=== PATIENT | female | born 1955 | race African-American/Black ===

== ENCOUNTER 2019-09-20 19:33 | Inpatient (IN) ==
[2019-09-20 20:27] LABS: Albumin 2.7 G/DL (3.4-5.0); Bilirubin,Total 0.7 MG/DL (0.2-1.0); Calcium 8.5 MG/DL (8.5-10.1); Osmolality,Calculated 306.7 MOS/KG (273-304); Total Protein 8.3 G/DL (6.4-8.3)
[2019-09-20 20:34] LABS: Basophils % 0.2 % (0.0-0.8); Eosinophils % 0.1 % (0.00-10.9); Hematocrit 41.7 VOL% (35.7-47.0); Hemoglobin 12.1 GM/DL (12.0-16.0); Immature Granulocytes % 0.3 %; Immature Granulocytes Absolute 0.03 #; Lymphocytes % 23.4 % (21.3-54.2); Mean Corpuscular Volume 91.4 FL (87-102); Mean Platelet Volume 13.3 FL (9.6-12.0); Monocytes % 8.2 % (1.7-12.7); Neutrophils % 67.8 % (38.7-73.9); Platelet Count 167 T/CUMM (130-400); Red Blood Count 4.56 MC/CUMM (3.8-5.5); Red Cell Distribution Width 15.2 % (9.3-17.3); White Blood Count 8.6 T/CUMM (4-12)
[2019-09-20] MEDS ORDERED: ONDANSETRON 4 MG/2 ML VIAL IV PRN (21:27)
[2019-09-20 21:29] LABS: Apearance,Urine Slightly Cloudy (Clear); Urine Color Yellow (Yellow)
[2019-09-20 21:30] LABS: Bilirubin,Urine Negative (Negative); Blood, Urine Trace mg/dL (Negative); Glucose,Urine (UA) 50 mg/dL (Negative); Ketones,Urine Negative (Negative); Nitrite,Urine Negative (Negative); Protein,Urine 100 MG/DL; RBC,Urine 0-2 /HPF (0-4); Squamous Epithelial Cell,Urine Few /HPF (0-10); Urine Urobilinogen 0.2 EU/DL (0.2-1.0)
[2019-09-20 21:31] LABS: Bacteria,Urine Few /HPF (Few)
[2019-09-20] MEDS: ENOXAPARIN 40 MG/0.4 ML SYRINGE SUBCUT SCH (23:44)
[2019-09-21 00:52] LABS: Barbiturates Screen,Urine Negative (Negative); Benzodiazepines Screen,Urine Negative (Negative); Cannabinoid Screen,Urine Negative (Negative); Opiate Screen,Urine Negative (Negative); Phencyclidine Screen,Urine Negative (Negative)
[2019-09-21] MEDS: DEXTROSE 5% 1,000 ML IV SCH ×3 (01:33→23:01)
[2019-09-21] MEDS: VANCOMYCIN INJ 1,000 MG in SODIUM CHLORIDE 0.9% 250 ML IV SCH ×2 (01:34→15:52)
[2019-09-21] MEDS: PIPERACILLIN/TAZOBACTAM 3,375 MG in SODIUM CHLORIDE 0.9% 100 ML IV SCH ×3 (02:54→18:25)
[2019-09-21 05:59] LABS: Basophils % 0.2 % (0.0-0.8); Eosinophils % 0.1 % (0.00-10.9); Immature Granulocytes % 0.4 %; Immature Granulocytes Absolute 0.04 #; Lymphocytes # 2.3 10*3/uL (1.4-4.0); Lymphocytes % 25.4 % (21.3-54.2); Mean Corpuscular HGB Conc 28.4 GM/DL (32-36); Mean Corpuscular Volume 92.8 FL (87-102); Mean Platelet Volume 12.3 FL (9.6-12.0); Monocytes % 7.4 % (1.7-12.7); Neutrophils % 66.5 % (38.7-73.9); Platelet Count 123 T/CUMM (130-400); Red Blood Count 4.44 MC/CUMM (3.8-5.5); Red Cell Distribution Width 14.9 % (9.3-17.3)
[2019-09-21] MEDS ORDERED: GLUCAGON 1 MG VIAL IM PRN (06:14)
[2019-09-21] MEDS ORDERED: DEXTROSE 50% 25 GM/50 ML VIAL IV PRN (06:14)
[2019-09-21 06:19] LABS: Hematocrit 41.1 VOL% (35.7-47.0); Hemoglobin 11.8 GM/DL (12.0-16.0)
[2019-09-21 06:21] LABS: Hypochromasia 1+
[2019-09-21 06:22] LABS: Platelet Estimate Adequate
[2019-09-21 06:32] LABS: Albumin 2.6 G/DL (3.4-5.0); Bilirubin,Total 1.3 MG/DL (0.2-1.0); Calcium 8.6 MG/DL (8.5-10.1); Osmolality,Calculated 319.7 MOS/KG (273-304)
[2019-09-21 07:30] LABS: Risk Ratio 3.97; VLDL CHOLESTEROL 19.8 MG/DL
[2019-09-21] MEDS ORDERED: OLOPATADINE BOTH EYES SCH (09:00)
[2019-09-21] MEDS: PANTOPRAZOLE 40 MG VIAL IV SCH (11:22)
[2019-09-21] MEDS: INSULIN LISPRO 100 UNIT/ML SUBCUT SCH ×2 (12:27→18:05)
[2019-09-21] MEDS: TRAVOPROST 0.004% OPH SOLN 2.5 ML BOTTLE BOTH EYES SCH (23:03)
[2019-09-21] MEDS: ENOXAPARIN 40 MG/0.4 ML SYRINGE SUBCUT SCH (23:03)
[2019-09-22] MEDS: INSULIN LISPRO 100 UNIT/ML SUBCUT SCH ×4 (00:04→18:14)
[2019-09-22] MEDS: VANCOMYCIN INJ 1,000 MG in SODIUM CHLORIDE 0.9% 250 ML IV SCH ×2 (03:28→14:49)
[2019-09-22] MEDS: PIPERACILLIN/TAZOBACTAM 3,375 MG in SODIUM CHLORIDE 0.9% 100 ML IV SCH ×3 (05:03→18:15)
[2019-09-22 05:45] LABS: Albumin 2.2 G/DL (3.4-5.0); Basophils % 0.1 % (0.0-0.8); Bilirubin,Total 0.5 MG/DL (0.2-1.0); Calcium 8.2 MG/DL (8.5-10.1); Eosinophils # 0.1 10*3/uL (0.0-0.87); Eosinophils % 1.3 % (0.00-10.9); Hematocrit 35.2 VOL% (35.7-47.0); Hemoglobin 10.2 GM/DL (12.0-16.0); Immature Granulocytes % 0.4 %; Immature Granulocytes Absolute 0.03 #; Lymphocytes # 2.4 10*3/uL (1.4-4.0); Lymphocytes % 33.3 % (21.3-54.2); Mean Corpuscular Volume 91.2 FL (87-102); Mean Platelet Volume 13.7 FL (9.6-12.0); Monocytes % 7.5 % (1.7-12.7); NRBC # 0.02 10*3/uL; Neutrophils % 57.4 % (38.7-73.9); Osmolality,Calculated 305.6 MOS/KG (273-304); Platelet Count 96 T/CUMM (130-400); Red Blood Count 3.86 MC/CUMM (3.8-5.5); Red Cell Distribution Width 14.6 % (9.3-17.3); Total Protein 6.8 G/DL (6.4-8.3); White Blood Count 7.1 T/CUMM (4-12)
[2019-09-22 05:49] LABS: Hypochromasia 1+; Platelet Estimate Decreased
[2019-09-22] MEDS: PANTOPRAZOLE 40 MG VIAL IV SCH (09:54)
[2019-09-22] MEDS: CLOPIDOGREL 75 MG TABLET PO SCH (09:54)
[2019-09-22] MEDS: DEXTROSE 5% 1,000 ML IV SCH ×2 (12:44→22:31)
[2019-09-22] MEDS: MENTHOL/ZINC OXIDE OINT 71 GM JAR TOP SCH ×2 (14:50→20:19)
[2019-09-22] MEDS: TRAVOPROST 0.004% OPH SOLN 2.5 ML BOTTLE BOTH EYES SCH (20:19)
[2019-09-22] MEDS: ENOXAPARIN 40 MG/0.4 ML SYRINGE SUBCUT SCH (20:32)
[2019-09-23] MEDS: INSULIN LISPRO 100 UNIT/ML SUBCUT SCH ×4 (00:53→17:18)
[2019-09-23] MEDS: VANCOMYCIN INJ 1,000 MG in SODIUM CHLORIDE 0.9% 250 ML IV SCH ×2 (01:17→13:32)
[2019-09-23] MEDS: DEXTROSE 5% 1,000 ML IV SCH ×3 (01:40→23:06)
[2019-09-23] MEDS: PIPERACILLIN/TAZOBACTAM 3,375 MG in SODIUM CHLORIDE 0.9% 100 ML IV SCH (02:31)
[2019-09-23 04:54] LABS: Basophils % 0.2 % (0.0-0.8); Eosinophils # 0.1 10*3/uL (0.0-0.87); Eosinophils % 2.5 % (0.00-10.9); Hematocrit 33.8 VOL% (35.7-47.0); Hemoglobin 10.1 GM/DL (12.0-16.0); Immature Granulocytes % 0.5 %; Immature Granulocytes Absolute 0.03 #; Lymphocytes # 1.9 10*3/uL (1.4-4.0); Lymphocytes % 33.1 % (21.3-54.2); Mean Corpuscular HGB Conc 29.9 GM/DL (32-36); Mean Corpuscular Volume 90.1 FL (87-102); Mean Platelet Volume 13.2 FL (9.6-12.0); Monocytes % 4.1 % (1.7-12.7); Neutrophils % 59.6 % (38.7-73.9); Platelet Count 89 T/CUMM (130-400); Red Blood Count 3.75 MC/CUMM (3.8-5.5); Red Cell Distribution Width 14.1 % (9.3-17.3); White Blood Count 5.6 T/CUMM (4-12)
[2019-09-23 05:18] LABS: Hypochromasia 1+; Platelet Estimate Decreased
[2019-09-23 05:24] LABS: Albumin 2.2 G/DL (3.4-5.0); Bilirubin,Total 0.6 MG/DL (0.2-1.0); Calcium 8.1 MG/DL (8.5-10.1); Osmolality,Calculated 292.4 MOS/KG (273-304); Total Protein 6.9 G/DL (6.4-8.3)
[2019-09-23] MEDS: CLOPIDOGREL 75 MG TABLET PO SCH (08:54)
[2019-09-23] MEDS: PANTOPRAZOLE 40 MG VIAL IV SCH (08:55)
[2019-09-23] MEDS: MENTHOL/ZINC OXIDE OINT 71 GM JAR TOP SCH ×2 (10:16→20:52)
[2019-09-23] MEDS ORDERED: FUROSEMIDE 40 MG/4 ML VIAL IV ONE (14:14)
[2019-09-23] MEDS: POTASSIUM CHLORIDE RIDER 10 MEQ in PREMIX 1 EACH IV PRN ×4 (15:33→19:19)
[2019-09-23] MEDS: ENOXAPARIN 40 MG/0.4 ML SYRINGE SUBCUT SCH (20:51)
[2019-09-23] MEDS: TRAVOPROST 0.004% OPH SOLN 2.5 ML BOTTLE BOTH EYES SCH (20:53)
[2019-09-23] MEDS ORDERED: POTASSIUM CHLORIDE 20 MEQ TABLET PO ONE (21:00)
[2019-09-24] MEDS: POTASSIUM CHLORIDE RIDER 10 MEQ in PREMIX 1 EACH IV PRN ×3 (00:20→03:34)
[2019-09-24] MEDS: INSULIN LISPRO 100 UNIT/ML SUBCUT SCH ×2 (00:41→07:06)
[2019-09-24] MEDS: VANCOMYCIN INJ 1,000 MG in SODIUM CHLORIDE 0.9% 250 ML IV SCH (01:38)
[2019-09-24] MEDS ORDERED: ALBUTEROL 2.5 MG/3 ML NEB RESP TX PRN (03:53)
[2019-09-24 05:36] LABS: Basophils % 0.3 % (0.0-0.8); Eosinophils # 0.1 10*3/uL (0.0-0.87); Eosinophils % 3.1 % (0.00-10.9); Hematocrit 33.6 VOL% (35.7-47.0); Hemoglobin 9.9 GM/DL (12.0-16.0); Immature Granulocytes % 0.5 %; Immature Granulocytes Absolute 0.02 #; Lymphocytes # 1.2 10*3/uL (1.4-4.0); Lymphocytes % 30.7 % (21.3-54.2); Mean Corpuscular HGB Conc 29.5 GM/DL (32-36); Mean Corpuscular Volume 89.4 FL (87-102); Mean Platelet Volume 13.9 FL (9.6-12.0); Monocytes % 3.6 % (1.7-12.7); Neutrophils % 61.8 % (38.7-73.9); Red Blood Count 3.76 MC/CUMM (3.8-5.5); Red Cell Distribution Width 13.6 % (9.3-17.3); White Blood Count 3.8 T/CUMM (4-12)
[2019-09-24 05:41] LABS: Platelet Count 96 T/CUMM (130-400)
[2019-09-24 06:03] LABS: Albumin 2.2 G/DL (3.4-5.0); Calcium 8.4 MG/DL (8.5-10.1); Osmolality,Calculated 284.8 MOS/KG (273-304)
[2019-09-24 06:38] LABS: Hypochromasia Slight; Platelet Estimate Decreased
[2019-09-24] MEDS ORDERED: SODIUM PHOSPHATE INJ 15 MMOL in SODIUM CHLORIDE 0.9% 250 ML IV ONE (08:39)
[2019-09-24] MEDS ORDERED: FUROSEMIDE 40 MG/4 ML VIAL IV ONE (08:40)
[2019-09-24] MEDS: PANTOPRAZOLE 40 MG VIAL IV SCH (10:19)
[2019-09-24] MEDS: CLOPIDOGREL 75 MG TABLET PO SCH (10:20)
[2019-09-24] MEDS: MENTHOL/ZINC OXIDE OINT 71 GM JAR TOP SCH (10:29)
[2019-09-24 11:59] VITALS: BP 120/70
== END 2019-09-24 14:23 | disposition home or self-care (01) | DRG 871 ==
LOC: EDUNIT# → EDBD → N.ED 19:33 → SUATTDRO 21:27 → N.EDINP 21:27 → N.5E 22:40
PROVIDERS: ADMIT Internal Medicine; ATTEND Internal Medicine Cardiovascular Disease

== ENCOUNTER 2020-06-26 07:53 | Inpatient (IN) ==
[2020-06-26 08:16] LABS: Basophils % 0.2 % (0.0-0.8); Eosinophils # 0.1 10*3/uL (0.0-0.87); Eosinophils % 1.9 % (0.00-10.9); Immature Granulocytes % 0.4 %; Immature Granulocytes Absolute 0.02 #; Lymphocytes # 0.9 10*3/uL (1.4-4.0); Lymphocytes % 18.5 % (21.3-54.2); Mean Corpuscular HGB Conc 30.8 GM/DL (32-36); Mean Corpuscular Volume 83.2 FL (87-102); Mean Platelet Volume 10.1 FL (9.6-12.0); Monocytes % 7.5 % (1.7-12.7); Neutrophils % 71.5 % (38.7-73.9); Platelet Count 250 T/CUMM (130-400); Red Blood Count 4.69 MC/CUMM (3.8-5.5); Red Cell Distribution Width 14.3 % (9.3-17.3); White Blood Count 4.8 T/CUMM (4-12)
[2020-06-26 08:40] LABS: Albumin 2.7 G/DL (3.4-5.0); Bilirubin,Total 0.5 MG/DL (0.2-1.0); Calcium 8.9 MG/DL (8.5-10.1); Osmolality,Calculated 277.5 MOS/KG (273-304); Total Protein 8.4 G/DL (6.4-8.3)
[2020-06-26 08:43] LABS: PT Patient Result 10.4 SECS (9.8-11.9); Partial Thromboplastin Time 20.9 SECS (23.9-33.8)
[2020-06-26] MEDS ORDERED: PIPERACILLIN/TAZOBACTAM 3,375 MG in SODIUM CHLORIDE 0.9% 100 ML IV STA (08:47)
[2020-06-26 09:20] LABS: Apearance,Urine CLEAR (Clear); Bilirubin,Urine Negative (Negative); Blood, Urine Negative (Negative); Glucose,Urine (UA) Negative (Negative); Ketones,Urine Negative (Negative); Mucus,Urine Occasional /LPF (Occasional); Nitrite,Urine Negative (Negative); Protein,Urine 30 MG/DL; RBC,Urine 1 /HPF (0-4); Squamous Epithelial Cell,Urine Occasional /HPF (0-10); Urine Color Yellow (Yellow); Urine Specific Gravity 1.025 (1.001-1.035); WBC,Urine <1 /HPF (0-6)
[2020-06-26] MEDS ORDERED: GLUCAGON 1 MG VIAL IM PRN (10:31)
[2020-06-26] MEDS ORDERED: DEXTROSE 50% 25 GM/50 ML VIAL IV PRN (10:31)
[2020-06-26 11:49] LABS: Ferritin 308.8 ng/ml (8-252)
[2020-06-26] MEDS: ENOXAPARIN 40 MG/0.4 ML SYRINGE SUBCUT SCH (13:30)
[2020-06-26] MEDS: LEVOFLOXACIN INJ 750 MG in PREMIX 1 EACH IV SCH (13:30)
[2020-06-26] MEDS ORDERED: ACETAMINOPHEN 325 MG TABLET PO PRN (14:19)
[2020-06-26] MEDS ORDERED: hydrALAZINE 20 MG/1 ML VIAL IV PRN (14:19)
[2020-06-26] MEDS ORDERED: ONDANSETRON 4 MG/2 ML VIAL IV PRN (14:19)
[2020-06-26 14:56] LABS: Risk Ratio 2.7; Thyroid Stimulating Hormone 1.5 uIU/ml (0.358-3.74); VLDL CHOLESTEROL 12.6 MG/DL
[2020-06-26] MEDS: INSULIN LISPRO 100 UNIT/ML SUBCUT SCH ×2 (16:36→21:05)
[2020-06-26] MEDS: DEXAMETHASONE 4 MG/1 ML VIAL IV SCH (17:02)
[2020-06-26] MEDS ORDERED: FUROSEMIDE 40 MG/4 ML VIAL IV ONE (17:28)
[2020-06-26] MEDS: ZINC GLUCONATE 50 MG TABLET PO SCH (21:05)
[2020-06-26] MEDS: ASCORBIC ACID 500 MG TABLET PO SCH (21:05)
[2020-06-26] MEDS: TRAVOPROST 0.004% OPH SOLN 2.5 ML BOTTLE BOTH EYES SCH (21:05)
[2020-06-26] MEDS: MELATONIN 3 MG TABLET PO SCH (21:05)
[2020-06-26] MEDS: SIMVASTATIN 10 MG TABLET PO SCH (21:05)
[2020-06-27 04:40] LABS: Hematocrit 36.6 VOL% (35.7-47.0); Hemoglobin 10.9 GM/DL (12.0-16.0); Immature Granulocytes % 0.5 %; Immature Granulocytes Absolute 0.02 #; Lymphocytes # 0.9 10*3/uL (1.4-4.0); Lymphocytes % 23.8 % (21.3-54.2); Mean Corpuscular HGB Conc 29.8 GM/DL (32-36); Mean Corpuscular Volume 83.8 FL (87-102); Mean Platelet Volume 9.9 FL (9.6-12.0); Monocytes % 4.1 % (1.7-12.7); Neutrophils % 71.6 % (38.7-73.9); Platelet Count 256 T/CUMM (130-400); Red Blood Count 4.37 MC/CUMM (3.8-5.5); Red Cell Distribution Width 14.1 % (9.3-17.3); White Blood Count 3.7 T/CUMM (4-12)
[2020-06-27 04:59] LABS: Calcium 9.1 MG/DL (8.5-10.1); Osmolality,Calculated 277.7 MOS/KG (273-304)
[2020-06-27] MEDS: INSULIN LISPRO 100 UNIT/ML SUBCUT SCH ×4 (08:36→21:32)
[2020-06-27] MEDS: amLODIPine 5 MG TABLET PO SCH (09:17)
[2020-06-27] MEDS: ASCORBIC ACID 500 MG TABLET PO SCH ×2 (09:17→21:31)
[2020-06-27] MEDS: LORATADINE 10 MG TABLET PO SCH (09:17)
[2020-06-27] MEDS: ZINC GLUCONATE 50 MG TABLET PO SCH ×2 (09:17→21:31)
[2020-06-27] MEDS: MULTIVITAMIN (CENTRUM) TABLET PO SCH (09:17)
[2020-06-27] MEDS: ASPIRIN CHEW 81 MG TABLET PO SCH (09:18)
[2020-06-27] MEDS: PANTOPRAZOLE 40 MG TABLET PO SCH (09:18)
[2020-06-27] MEDS: CLOPIDOGREL 75 MG TABLET PO SCH (09:18)
[2020-06-27] MEDS: MEMANTINE 10 MG TABLET PO SCH (09:18)
[2020-06-27] MEDS: DEXAMETHASONE 4 MG/1 ML VIAL IV SCH (09:19)
[2020-06-27] MEDS: LEVOFLOXACIN INJ 750 MG in PREMIX 1 EACH IV SCH (09:19)
[2020-06-27] MEDS: FLUTICASONE 50 MCG NASAL SPRAY 16 GM BOTTLE BOTH NARES SCH (09:20)
[2020-06-27] MEDS: OLOPATADINE 0.1% OPH SOLN 5 ML BOTTLE BOTH EYES SCH (10:19)
[2020-06-27] MEDS: ENOXAPARIN 40 MG/0.4 ML SYRINGE SUBCUT SCH (10:20)
[2020-06-27] MEDS ORDERED: REMDESIVIR 200 MG in SODIUM CHLORIDE 0.9% 210 ML IV ONE (17:00)
[2020-06-27] MEDS: SIMVASTATIN 10 MG TABLET PO SCH (21:31)
[2020-06-27] MEDS: MELATONIN 3 MG TABLET PO SCH (21:31)
[2020-06-27] MEDS: TRAVOPROST 0.004% OPH SOLN 2.5 ML BOTTLE BOTH EYES SCH (21:31)
[2020-06-28 03:08] LABS: Hematocrit 35.3 VOL% (35.7-47.0); Hemoglobin 10.5 GM/DL (12.0-16.0); Immature Granulocytes % 0.5 %; Immature Granulocytes Absolute 0.03 #; Lymphocytes # 1.4 10*3/uL (1.4-4.0); Lymphocytes % 23.4 % (21.3-54.2); Mean Corpuscular HGB Conc 29.7 GM/DL (32-36); Mean Platelet Volume 10.3 FL (9.6-12.0); Neutrophils % 64.1 % (38.7-73.9); Platelet Count 247 T/CUMM (130-400); Red Cell Distribution Width 14.1 % (9.3-17.3)
[2020-06-28 03:23] LABS: Calcium 9.2 MG/DL (8.5-10.1); Osmolality,Calculated 281.4 MOS/KG (273-304)
[2020-06-28] MEDS: INSULIN LISPRO 100 UNIT/ML SUBCUT SCH ×4 (09:10→20:49)
[2020-06-28] MEDS: ASCORBIC ACID 500 MG TABLET PO SCH ×2 (09:12→20:50)
[2020-06-28] MEDS: amLODIPine 5 MG TABLET PO SCH (09:12)
[2020-06-28] MEDS: ASPIRIN CHEW 81 MG TABLET PO SCH (09:13)
[2020-06-28] MEDS: DEXAMETHASONE 4 MG/1 ML VIAL IV SCH (09:13)
[2020-06-28] MEDS: MEMANTINE 10 MG TABLET PO SCH (09:13)
[2020-06-28] MEDS: PANTOPRAZOLE 40 MG TABLET PO SCH (09:13)
[2020-06-28] MEDS: MULTIVITAMIN (CENTRUM) TABLET PO SCH (09:13)
[2020-06-28] MEDS: CLOPIDOGREL 75 MG TABLET PO SCH (09:13)
[2020-06-28] MEDS: LORATADINE 10 MG TABLET PO SCH (09:13)
[2020-06-28] MEDS: ZINC GLUCONATE 50 MG TABLET PO SCH ×2 (09:13→20:50)
[2020-06-28] MEDS: FLUTICASONE 50 MCG NASAL SPRAY 16 GM BOTTLE BOTH NARES SCH (09:14)
[2020-06-28] MEDS: LEVOFLOXACIN INJ 750 MG in PREMIX 1 EACH IV SCH (09:30)
[2020-06-28] MEDS: OLOPATADINE 0.1% OPH SOLN 5 ML BOTTLE BOTH EYES SCH (09:32)
[2020-06-28] MEDS: ENOXAPARIN 40 MG/0.4 ML SYRINGE SUBCUT SCH (11:50)
[2020-06-28] MEDS: REMDESIVIR 100 MG in SODIUM CHLORIDE 0.9% 230 ML IV SCH (16:08)
[2020-06-28] MEDS: MELATONIN 3 MG TABLET PO SCH (20:49)
[2020-06-28] MEDS: TRAVOPROST 0.004% OPH SOLN 2.5 ML BOTTLE BOTH EYES SCH (20:50)
[2020-06-28] MEDS: SIMVASTATIN 10 MG TABLET PO SCH (20:50)
[2020-06-29 06:27] LABS: Basophils % 0.2 % (0.0-0.8); Hematocrit 33.2 VOL% (35.7-47.0); Immature Granulocytes % 0.2 %; Immature Granulocytes Absolute 0.01 #; Lymphocytes # 2.4 10*3/uL (1.4-4.0); Lymphocytes % 39.2 % (21.3-54.2); Mean Corpuscular HGB Conc 30.1 GM/DL (32-36); Mean Corpuscular Volume 84.9 FL (87-102); Mean Platelet Volume 10.7 FL (9.6-12.0); Monocytes % 9.4 % (1.7-12.7); Platelet Count 263 T/CUMM (130-400); Red Blood Count 3.91 MC/CUMM (3.8-5.5); Red Cell Distribution Width 14.2 % (9.3-17.3)
[2020-06-29 06:36] LABS: Calcium 8.9 MG/DL (8.5-10.1); Osmolality,Calculated 284.1 MOS/KG (273-304)
[2020-06-29] MEDS ORDERED: DOCUSATE SODIUM 100 MG/10 ML UDCUP PO PRN (07:22)
[2020-06-29] MEDS ORDERED: SENNA 8.6 MG TABLET PO PRN (07:24)
[2020-06-29] MEDS: INSULIN LISPRO 100 UNIT/ML SUBCUT SCH ×4 (07:55→20:11)
[2020-06-29] MEDS: LEVOFLOXACIN INJ 750 MG in PREMIX 1 EACH IV SCH (08:49)
[2020-06-29] MEDS: PANTOPRAZOLE 40 MG TABLET PO SCH (08:50)
[2020-06-29] MEDS: DEXAMETHASONE 4 MG/1 ML VIAL IV SCH (08:50)
[2020-06-29] MEDS: CLOPIDOGREL 75 MG TABLET PO SCH (08:51)
[2020-06-29] MEDS: LORATADINE 10 MG TABLET PO SCH (08:51)
[2020-06-29] MEDS: ASPIRIN CHEW 81 MG TABLET PO SCH (08:51)
[2020-06-29] MEDS: MULTIVITAMIN (CENTRUM) TABLET PO SCH (08:51)
[2020-06-29] MEDS: MEMANTINE 10 MG TABLET PO SCH (08:51)
[2020-06-29] MEDS: ASCORBIC ACID 500 MG TABLET PO SCH ×2 (08:51→20:12)
[2020-06-29] MEDS: ZINC GLUCONATE 50 MG TABLET PO SCH ×2 (08:51→20:12)
[2020-06-29] MEDS: amLODIPine 5 MG TABLET PO SCH (08:51)
[2020-06-29] MEDS: DOCUSATE/SENNA 50-8.6 MG TABLET PO SCH ×2 (08:52→20:12)
[2020-06-29] MEDS: FLUTICASONE 50 MCG NASAL SPRAY 16 GM BOTTLE BOTH NARES SCH (08:52)
[2020-06-29] MEDS: OLOPATADINE 0.1% OPH SOLN 5 ML BOTTLE BOTH EYES SCH (08:52)
[2020-06-29] MEDS: ENOXAPARIN 40 MG/0.4 ML SYRINGE SUBCUT SCH (11:50)
[2020-06-29] MEDS: REMDESIVIR 100 MG in SODIUM CHLORIDE 0.9% 230 ML IV SCH (16:13)
[2020-06-29] MEDS: MELATONIN 3 MG TABLET PO SCH (20:12)
[2020-06-29] MEDS: SIMVASTATIN 10 MG TABLET PO SCH (20:12)
[2020-06-29] MEDS: TRAVOPROST 0.004% OPH SOLN 2.5 ML BOTTLE BOTH EYES SCH (20:12)
[2020-06-30] MEDS: INSULIN LISPRO 100 UNIT/ML SUBCUT SCH ×4 (07:36→21:45)
[2020-06-30 07:44] LABS: Osmolality,Calculated 279.4 MOS/KG (273-304)
[2020-06-30] MEDS: DOCUSATE/SENNA 50-8.6 MG TABLET PO SCH ×2 (08:34→21:31)
[2020-06-30] MEDS: ASCORBIC ACID 500 MG TABLET PO SCH ×2 (08:34→21:31)
[2020-06-30] MEDS: CLOPIDOGREL 75 MG TABLET PO SCH (08:34)
[2020-06-30] MEDS: ZINC GLUCONATE 50 MG TABLET PO SCH ×2 (08:34→21:31)
[2020-06-30] MEDS: MEMANTINE 10 MG TABLET PO SCH (08:35)
[2020-06-30] MEDS: PANTOPRAZOLE 40 MG TABLET PO SCH (08:35)
[2020-06-30] MEDS: FLUTICASONE 50 MCG NASAL SPRAY 16 GM BOTTLE BOTH NARES SCH (08:36)
[2020-06-30] MEDS: amLODIPine 5 MG TABLET PO SCH (08:36)
[2020-06-30] MEDS: DEXAMETHASONE 4 MG/1 ML VIAL IV SCH (08:36)
[2020-06-30] MEDS: MULTIVITAMIN (CENTRUM) TABLET PO SCH (08:36)
[2020-06-30] MEDS: ASPIRIN CHEW 81 MG TABLET PO SCH (08:36)
[2020-06-30] MEDS: LORATADINE 10 MG TABLET PO SCH (08:36)
[2020-06-30] MEDS: LEVOFLOXACIN INJ 750 MG in PREMIX 1 EACH IV SCH (08:37)
[2020-06-30] MEDS: OLOPATADINE 0.1% OPH SOLN 5 ML BOTTLE BOTH EYES SCH (08:37)
[2020-06-30] MEDS ORDERED: MAGNESIUM CITRATE 300 ML BOTTLE PO PRN (11:21)
[2020-06-30] MEDS: ENOXAPARIN 40 MG/0.4 ML SYRINGE SUBCUT SCH (11:35)
[2020-06-30] MEDS: REMDESIVIR 100 MG in SODIUM CHLORIDE 0.9% 230 ML IV SCH (16:31)
[2020-06-30] MEDS: MELATONIN 3 MG TABLET PO SCH (21:31)
[2020-06-30] MEDS: SIMVASTATIN 10 MG TABLET PO SCH (21:31)
[2020-06-30] MEDS: TRAVOPROST 0.004% OPH SOLN 2.5 ML BOTTLE BOTH EYES SCH (21:32)
[2020-07-01] MEDS: INSULIN LISPRO 100 UNIT/ML SUBCUT SCH ×4 (08:36→20:21)
[2020-07-01] MEDS: LEVOFLOXACIN INJ 750 MG in PREMIX 1 EACH IV SCH (09:18)
[2020-07-01] MEDS: DEXAMETHASONE 4 MG/1 ML VIAL IV SCH (09:18)
[2020-07-01] MEDS: DOCUSATE/SENNA 50-8.6 MG TABLET PO SCH ×2 (09:19→20:22)
[2020-07-01] MEDS: CLOPIDOGREL 75 MG TABLET PO SCH (09:19)
[2020-07-01] MEDS: ZINC GLUCONATE 50 MG TABLET PO SCH ×2 (09:19→20:22)
[2020-07-01] MEDS: MEMANTINE 10 MG TABLET PO SCH (09:19)
[2020-07-01] MEDS: LORATADINE 10 MG TABLET PO SCH (09:19)
[2020-07-01] MEDS: ASCORBIC ACID 500 MG TABLET PO SCH ×2 (09:19→20:22)
[2020-07-01] MEDS: PANTOPRAZOLE 40 MG TABLET PO SCH (09:19)
[2020-07-01] MEDS: amLODIPine 5 MG TABLET PO SCH (09:19)
[2020-07-01] MEDS: MULTIVITAMIN (CENTRUM) TABLET PO SCH (09:19)
[2020-07-01] MEDS: ASPIRIN CHEW 81 MG TABLET PO SCH (09:19)
[2020-07-01] MEDS: OLOPATADINE 0.1% OPH SOLN 5 ML BOTTLE BOTH EYES SCH (09:20)
[2020-07-01] MEDS: FLUTICASONE 50 MCG NASAL SPRAY 16 GM BOTTLE BOTH NARES SCH (09:20)
[2020-07-01] MEDS: ENOXAPARIN 40 MG/0.4 ML SYRINGE SUBCUT SCH (11:43)
[2020-07-01] MEDS: REMDESIVIR 100 MG in SODIUM CHLORIDE 0.9% 230 ML IV SCH (16:05)
[2020-07-01] MEDS: SIMVASTATIN 10 MG TABLET PO SCH (20:22)
[2020-07-01] MEDS: TRAVOPROST 0.004% OPH SOLN 2.5 ML BOTTLE BOTH EYES SCH (20:22)
[2020-07-01] MEDS: MELATONIN 3 MG TABLET PO SCH (20:22)
[2020-07-02 05:41] LABS: Basophils % 0.1 % (0.0-0.8); Eosinophils # 0.1 10*3/uL (0.0-0.87); Eosinophils % 1.7 % (0.00-10.9); Hematocrit 37.1 VOL% (35.7-47.0); Hemoglobin 11.5 GM/DL (12.0-16.0); Immature Granulocytes % 0.5 %; Immature Granulocytes Absolute 0.04 #; Lymphocytes # 3.3 10*3/uL (1.4-4.0); Lymphocytes % 40.2 % (21.3-54.2); Mean Corpuscular Volume 81.5 FL (87-102); Mean Platelet Volume 10.6 FL (9.6-12.0); Neutrophils % 50.5 % (38.7-73.9); Platelet Count 286 T/CUMM (130-400); Red Blood Count 4.55 MC/CUMM (3.8-5.5); Red Cell Distribution Width 14.6 % (9.3-17.3); White Blood Count 8.2 T/CUMM (4-12)
[2020-07-02 05:58] LABS: Calcium 8.8 MG/DL (8.5-10.1); Osmolality,Calculated 275.7 MOS/KG (273-304)
[2020-07-02] MEDS: INSULIN LISPRO 100 UNIT/ML SUBCUT SCH ×4 (08:05→21:03)
[2020-07-02] MEDS: CLOPIDOGREL 75 MG TABLET PO SCH (08:55)
[2020-07-02] MEDS: LORATADINE 10 MG TABLET PO SCH (08:55)
[2020-07-02] MEDS: ZINC GLUCONATE 50 MG TABLET PO SCH ×2 (08:55→21:03)
[2020-07-02] MEDS: DOCUSATE/SENNA 50-8.6 MG TABLET PO SCH ×2 (08:55→21:03)
[2020-07-02] MEDS: OLOPATADINE 0.1% OPH SOLN 5 ML BOTTLE BOTH EYES SCH (08:55)
[2020-07-02] MEDS: amLODIPine 5 MG TABLET PO SCH (08:55)
[2020-07-02] MEDS: ASCORBIC ACID 500 MG TABLET PO SCH ×2 (08:55→21:03)
[2020-07-02] MEDS: FLUTICASONE 50 MCG NASAL SPRAY 16 GM BOTTLE BOTH NARES SCH (08:55)
[2020-07-02] MEDS: PANTOPRAZOLE 40 MG TABLET PO SCH (08:56)
[2020-07-02] MEDS: DEXAMETHASONE 4 MG/1 ML VIAL IV SCH (08:56)
[2020-07-02] MEDS: ASPIRIN CHEW 81 MG TABLET PO SCH (08:56)
[2020-07-02] MEDS: MULTIVITAMIN (CENTRUM) TABLET PO SCH (08:56)
[2020-07-02] MEDS: MEMANTINE 10 MG TABLET PO SCH (08:56)
[2020-07-02] MEDS: LEVOFLOXACIN INJ 750 MG in PREMIX 1 EACH IV SCH (08:57)
[2020-07-02] MEDS: ENOXAPARIN 40 MG/0.4 ML SYRINGE SUBCUT SCH (10:03)
[2020-07-02] MEDS: TRAVOPROST 0.004% OPH SOLN 2.5 ML BOTTLE BOTH EYES SCH (21:02)
[2020-07-02] MEDS: SIMVASTATIN 10 MG TABLET PO SCH (21:04)
[2020-07-02] MEDS: MELATONIN 3 MG TABLET PO SCH (21:04)
[2020-07-03] MEDS: INSULIN LISPRO 100 UNIT/ML SUBCUT SCH (07:47)
[2020-07-03 08:11] VITALS: BP 142/74
[2020-07-03] MEDS: amLODIPine 5 MG TABLET PO SCH (08:34)
[2020-07-03] MEDS: ASPIRIN CHEW 81 MG TABLET PO SCH (08:34)
[2020-07-03] MEDS: MEMANTINE 10 MG TABLET PO SCH (08:34)
[2020-07-03] MEDS: CLOPIDOGREL 75 MG TABLET PO SCH (08:34)
[2020-07-03] MEDS: LORATADINE 10 MG TABLET PO SCH (08:34)
[2020-07-03] MEDS: ASCORBIC ACID 500 MG TABLET PO SCH (08:34)
[2020-07-03] MEDS: DOCUSATE/SENNA 50-8.6 MG TABLET PO SCH (08:34)
[2020-07-03] MEDS: ZINC GLUCONATE 50 MG TABLET PO SCH (08:34)
[2020-07-03] MEDS: PANTOPRAZOLE 40 MG TABLET PO SCH (08:34)
[2020-07-03] MEDS: MULTIVITAMIN (CENTRUM) TABLET PO SCH (08:34)
[2020-07-03] MEDS: DEXAMETHASONE 4 MG/1 ML VIAL IV SCH (08:35)
[2020-07-03] MEDS: OLOPATADINE 0.1% OPH SOLN 5 ML BOTTLE BOTH EYES SCH (08:35)
[2020-07-03] MEDS: FLUTICASONE 50 MCG NASAL SPRAY 16 GM BOTTLE BOTH NARES SCH (08:35)
== END 2020-07-03 10:30 | disposition home or self-care (01) | DRG 177 ==
LOC: N.ED 07:53 → SUATTDRO 10:31 → N.EDINP 10:31 → N.2E 12:39
PROVIDERS: ADMIT Family Medicine; ATTEND Internal Medicine

== ENCOUNTER 2020-07-31 21:49 | Observation (INO) ==
[2020-07-31] MEDS ORDERED: ALBUTEROL/IPRATROPIUM 3 ML NEB RESP TX STA (22:11)
[2020-07-31] MEDS ORDERED: methylPREDNISolone SOD SUC 125 MG/2 ML VIAL IV STA (22:11)
[2020-07-31 22:53] LABS: Basophils % 0.2 % (0.0-0.8); Eosinophils % 0.4 % (0.00-10.9); Hematocrit 36.9 VOL% (35.7-47.0); Hemoglobin 11.2 GM/DL (12.0-16.0); Immature Granulocytes % 0.4 %; Immature Granulocytes Absolute 0.04 #; Lymphocytes # 2.5 10*3/uL (1.4-4.0); Lymphocytes % 23.1 % (21.3-54.2); Mean Corpuscular HGB Conc 30.4 GM/DL (32-36); Monocytes % 7.8 % (1.7-12.7); Neutrophils % 68.1 % (38.7-73.9); Platelet Count 257 T/CUMM (130-400); Red Blood Count 4.24 MC/CUMM (3.8-5.5); Red Cell Distribution Width 17.2 % (9.3-17.3); White Blood Count 10.8 T/CUMM (4-12)
[2020-07-31 23:11] LABS: Alanine Aminotransferase 19 U/L (13-56); Albumin 2.3 G/DL (3.4-5.0); Alkaline Phosphatase 121 U/L (45-117); Aspartate Amino Transferase 26 U/L (0-37); Bilirubin,Total < 0.39 MG/DL (0.2-1.0); Blood Urea Nitrogen 25 MG/DL (7-18); Calcium 8.6 MG/DL (8.5-10.1); Glucose 115 MG/DL (74-106); Osmolality,Calculated 292.7 MOS/KG (273-304)
[2020-07-31 23:13] LABS: Estimated Glom Filtration Rate 0 ML/MIN
[2020-07-31 23:23] LABS: Apearance,Urine Slightly Hazy (Clear); Bilirubin,Urine Negative (Negative); Blood, Urine Negative (Negative); Glucose,Urine (UA) Negative (Negative); Granular Casts,Urine 2 /LPF (0-1); Hyaline Casts,Urine 2 /LPF (0-3); Ketones,Urine Negative (Negative); Mucus,Urine Occasional /LPF (Occasional); Nitrite,Urine Negative (Negative); Protein,Urine 100 MG/DL; RBC,Urine 2 /HPF (0-4); Red Blood Cell Casts,Urine 3 /LPF (<1); Squamous Epithelial Cell,Urine Occasional /HPF (0-10); Urine Color Yellow (Yellow); Urine Specific Gravity 1.023 (1.001-1.035); WBC,Urine 3 /HPF (0-6)
[2020-08-01] MEDS ORDERED: DOCUSATE SODIUM 100 MG CAPSULE PO PRN (01:26)
[2020-08-01] MEDS ORDERED: ONDANSETRON 4 MG/2 ML VIAL IV PRN (01:26)
[2020-08-01] MEDS ORDERED: ACETAMINOPHEN 325 MG TABLET PO PRN (01:26)
[2020-08-01] MEDS ORDERED: ALBUTEROL/IPRATROPIUM 3 ML NEB RESP TX ONE ×2 (07:05→11:59)
[2020-08-01] MEDS: ALBUTEROL/IPRATROPIUM 3 ML NEB RESP TX SCH ×3 (07:09→19:42)
[2020-08-01] MEDS ORDERED: AZITHROMYCIN INJ 250 MG in SODIUM CHLORIDE 0.9% 250 ML IV SCH (13:00)
[2020-08-01] MEDS: cefTRIAXone 1,000 MG in SYRINGE 1 EACH IV SCH (13:00)
[2020-08-01] MEDS: predniSONE 20 MG TABLET PO SCH (13:00)
[2020-08-01] MEDS ORDERED: predniSONE 20 MG TABLET ONE (13:32)
[2020-08-01] MEDS ORDERED: cefTRIAXone 1,000 MG VIAL ONE (13:32)
[2020-08-01] MEDS ORDERED: RIVAROXABAN 10 MG TABLET PO SCH (14:00)
[2020-08-01] MEDS ORDERED: BISACODYL 5 MG TABLET PO PRN (15:46)
[2020-08-01] MEDS: amLODIPine 5 MG TABLET PO SCH (17:10)
[2020-08-01] MEDS: ASPIRIN CHEW 81 MG TABLET PO SCH (17:10)
[2020-08-01] MEDS: CLOPIDOGREL 75 MG TABLET PO SCH (17:10)
[2020-08-01] MEDS ORDERED: SIMVASTATIN 10 MG TABLET PO SCH (21:00)
[2020-08-01] MEDS ORDERED: TRAVOPROST 0.004% OPH SOLN 2.5 ML BOTTLE BOTH EYES SCH (21:00)
[2020-08-02] MEDS: ALBUTEROL/IPRATROPIUM 3 ML NEB RESP TX SCH ×2 (00:08→07:44)
[2020-08-02 05:58] LABS: Basophils % 0.2 % (0.0-0.8); Hematocrit 34.9 VOL% (35.7-47.0); Hemoglobin 10.4 GM/DL (12.0-16.0); Immature Granulocytes % 0.9 %; Immature Granulocytes Absolute 0.08 #; Lymphocytes # 1.3 10*3/uL (1.4-4.0); Lymphocytes % 14.3 % (21.3-54.2); Mean Corpuscular HGB Conc 29.8 GM/DL (32-36); Mean Platelet Volume 11.4 FL (9.6-12.0); Neutrophils % 78.6 % (38.7-73.9); Platelet Count 261 T/CUMM (130-400); Red Blood Count 4.06 MC/CUMM (3.8-5.5); Red Cell Distribution Width 17.2 % (9.3-17.3); White Blood Count 9.4 T/CUMM (4-12)
[2020-08-02 06:15] LABS: Calcium 8.7 MG/DL (8.5-10.1); Osmolality,Calculated 296.6 MOS/KG (273-304)
[2020-08-02] MEDS ORDERED: PANTOPRAZOLE 40 MG TABLET PO SCH (06:30)
[2020-08-02] MEDS: ASPIRIN CHEW 81 MG TABLET PO SCH (08:47)
[2020-08-02] MEDS: predniSONE 20 MG TABLET PO SCH (08:47)
[2020-08-02] MEDS: amLODIPine 5 MG TABLET PO SCH (08:47)
[2020-08-02] MEDS: cefTRIAXone 1,000 MG in SYRINGE 1 EACH IV SCH (08:47)
[2020-08-02] MEDS: CLOPIDOGREL 75 MG TABLET PO SCH (08:47)
[2020-08-02] MEDS ORDERED: MEMANTINE 10 MG TABLET PO SCH (09:00)
[2020-08-02] MEDS ORDERED: POLYETHYLENE GLYCOL POWDER 17 GM PACK PO SCH (09:00)
[2020-08-02] MEDS ORDERED: AZITHROMYCIN 250 MG TABLET PO SCH (09:00)
[2020-08-02] MEDS ORDERED: OLOPATADINE 0.1% OPH SOLN 5 ML BOTTLE BOTH EYES SCH (09:00)
[2020-08-02] MEDS ORDERED: MAGNESIUM CITRATE 300 ML BOTTLE PO ONE (10:30)
[2020-08-02 12:21] VITALS: BP 117/58
== END 2020-08-02 12:58 ==
LOC: EDUNIT# → N.ED 21:49 → N.EDINP 21:49 → N.5E 08-01 15:04
PROVIDERS: ADMIT Internal Medicine; ATTEND Internal Medicine